=== PATIENT | female | born 1925 | race Caucasian/White ===

== ENCOUNTER 2017-06-19 11:32 | Observation (INO) | payer MEDICARE, OTHER ==
[~2017-06-19] VITALS: Ht 160 cm; Wt 60.0 kg
[2017-06-19] VITALS (7 sets, daily range): BP systolic 131–168; BP diastolic 64–80; PULSE 70–83; RESP 16–20; TEMP 97.8–98.7; O2SAT 94–96
[~2017-06-19 11:32] MED LIST: ASPI-94 PO; CARI350T19 PO; CLOP75 PO; CO-E50CA PO; FISH1000 PO; FURO1TAB93 PO; GABA300 PO; GLUC250C5 PO; IMDU60TA PO; LEVO75TA41 PO; METO50 PO; NITR4.9S3 SL; TAB-TAB PO; [UNRECOGNIZED DRUG - CODE] SL
[2017-06-19] MEDS ORDERED: ASPIRIN 81 MG CHEW TAB PO ONE (12:00)
[2017-06-19] MEDS ORDERED: NITROGLYCERIN 2% OINT 1 GM PACKET TOP ONE (12:00)
[2017-06-19] MEDS ORDERED: MORPHINE SULFATE 4 MG/ML INJ IV PUSH ONE (12:00)
[2017-06-19] MEDS ORDERED: SODIUM CHLORIDE 0.9% FLUSH 10 ML FLUSH IVF PRN (12:00)
--- NOTE | 2017-06-19 12:22 | RADRPT ---
EXAM DATE/TIME: 06/19/2017 12:03 [place] COMPARISON: No previous studies available for comparison. INDICATIONS : Chest pain, heavy feeling in chest, short of breath and headache MEDICAL HISTORY : Cardiovascular disease. SURGICAL HISTORY : coronary artery stent x 3 ENCOUNTER: Initial ACUITY: 1 week PAIN SCORE: 5/10 LOCATION: Bilateral chest FINDINGS: Gastrinomas are seen in both lungs, described on the CT and radiograph of 04/29/2013. There is no papo dent consolidation, pleural effusion or pneumothorax. The heart and pulmonary vascularity are normal. The portion of the bony skeleton visualized is unremarkable. CONCLUSION: Negative for acute process. Bryon Rdz MD FACR on June 19, 2017 at 12:18 Board Certified Radiologist. This report was verified electronically.
[2017-06-19 12:47] LABS: AUTOMATED NEUTROPHIL # 7.5 TH/MM3 (1.8-7.7); BASOPHIL # 0.1 TH/MM3 (0-0.2); BASOPHIL % 0.7 % (0.0-2.0); EOSINOPHIL # 0.2 TH/MM3 (0-0.4); EOSINOPHIL % 1.6 % (0.0-4.0); HEMATOCRIT 39.6 % (35.0-46.0); HEMO FLAGS DIFF FINAL; LYMPH % 13.5 % (9.0-44.0); LYMPHOCYTE # 1.5 TH/MM3 (1.0-4.8); MEAN CELL VOLUME 95.4 FL (80.0-100.0); MEAN CORPUSCULAR HEMOGLOBIN 31.3 PG (27.0-34.0); MEAN CORPUSCULAR HGB CONC 32.9 % (32.0-36.0); MONO % 15.9 % (0.0-8.0); NEUT % 68.3 % (16.0-70.0); PLATELET COUNT 208 TH/MM3 (150-450); RED BLOOD COUNT 4.15 MIL/MM3 (4.00-5.30); RED CELL DISTRIBUTION WIDTH 13.2 % (11.6-17.2); WHITE BLOOD COUNT 10.9 TH/MM3 (4.0-11.0)
[2017-06-19 12:56] LABS: APTT (PATIENT) 26.7 SEC (24.3-30.1); PROTHROMBIN TIME - PATIENT 11.4 SEC (9.8-11.6)
--- NOTE | 2017-06-19 13:00 | PD ---
HPI . Headache Chief Complaint: Cardiac Complaint Time Seen by Provider: 11:45 Travel History International Travel<30 days: No Contact w/Intl Traveler<30days: No Traveled to known affect area: No History of Present Illness HPI This patient presents complaining with headache, chest pressure and shortness of breath. She has been having these symptoms intermittently for about a week and a half. The symptoms always occur between 2 AM and 5 AM. She states that her symptoms peak 3 AM. She believes that all of her symptoms are related to elevated blood pressure. She states that she wakes up with the headaches and then starts monitoring her blood pressures. Her blood pressures will gradually increase and then spontaneously start to decrease. She states that her symptoms seem to go away when it becomes morning time and when her blood pressure goes down. She states that she does not have symptoms every day but has had them several times in the last week and a half. She reports her chest pressure is mild headaches are severe. They are frontal. The headaches resolve with ice. PFSH Past Medical History Arthritis: Yes (knee) Asthma: No Heart Rhythm Problems: Yes (1998) Cancer: Yes (lymphoma x2, squamous cell x 2) Cardiac Catheterization: Yes Cardiovascular Problems: Yes High Cholesterol: Yes Chemotherapy: Yes (1988 & 1998) Chest Pain: Yes Congestive Heart Failure: Yes COPD: No Cerebrovascular Accident: No Coronary Artery Disease: Yes Diabetes: No Diminished Hearing: No Endocrine: Yes Gastrointestinal Disorders: No Glaucoma: No Genitourinary: No Hepatitis: No Hypertension: No Medical other: Yes (PERIPHERAL NEUROPATHY) Musculoskeletal: Yes Neurologic: Yes (NEUROPATHY) Psychiatric: No Reproductive: No Respiratory: Yes Migraines: No Myocardial Infarction: Yes Radiation Therapy: No Renal Failure: No Seizures: No Sleep Apnea: No Thyroid Disease: Yes (hypothyroidism) Past Surgical History Abdominal Surgery: Yes (SPLENECTOMY/ appy) AICD: No Appendectomy: Yes Arteriovenous Shunt: No Cardiac Surgery: Yes (3 stents 2005) Coronary Stent: Yes (X 3) Endocrine Surgery: No Eye Surgery: Yes (CATARACT LEFT EYE) Gynecologic Surgery: Yes (full hyster) Hysterectomy: Yes Insulin Pump: No Joint Replacement: No Oral Surgery: Yes (T & A) Pacemaker: No Thoracic Surgery: No Tonsillectomy: Yes Other Surgery: Yes (SQUMAOUS CELL CARCINOMA REMOVED FROM THROAT) Social History Alcohol Use: No Tobacco Use: No Substance Use: No Allergies-Medications (Allergen,Severity, Reaction): Coded Allergies: penicillin G (Unverified Allergy, Severe, HIVES, 05/16/17) lovastatin (Unverified Allergy, Intermediate, MUSCLE PAIN, 05/16/17) ALL "STATINS" rosuvastatin (Unverified Allergy, Intermediate, 05/16/17) Uncoded Allergies: STATINS (Allergy, Severe, 11/07/11) Reported Meds & Prescriptions Reported Meds & Active Scripts Active Reported Lasix (Furosemide) 40 Mg Tab 40 Mg PO DAILY Nitrolingual 0.4 Mg Pumpspray (Nitroglycerin) 60 Mcbrides/4.9 Gm Mcbrides 1 Mcbrides SL DIRECTED MAXIUMUM OF 3 DOSES IN 15 MINUTES.CALL MD IF CHEST PAIN NOT RELIEVED. Glucosamine Chondroitin (Glucosamine-Chondroitin) 1 Cap Cap 1 Cap PO DAILY Carisoprodol 350 Mg Tab 0.5 Tab PO Q12H Ec-81 Aspirin (Aspirin) 81 Mg Tabec 81 Mg PO DAILY B-12-Sl (Cyanocobalamin) 1,000 Mcg Sub 1,000 Mcg SL DAILY Co Enzyme Q-10 (Coenzyme Q10 (Ubidecarenone)) 50 Mg Cap 100 Mg PO DAILY Lopressor (Metoprolol Tartrate) 50 Mg Tab 50 Mg PO BID Multivitamin (Multivitamins) 1 Tab Tab 1 Tab PO DAILY Fish Oil 1,000 Mg Cap 1,200 Mg PO BID Plavix (Clopidogrel Bisulfate) 75 Mg Tab 75 Mg PO DAILY Imdur (Isosorbide Mononitrate) 60 Mg Tabcr 60 Mg PO DAILY Levothroid (Levothyroxine Sodium) 75 Mcg Tab 75 Mcg PO DAILY@0600 Neurontin (Gabapentin) 300 Mg Cap 300 Mg PO Q6 600 MG @ 0600 300 MG @ 1200 300 MG @ 1800 600 MG @ 0000 Review of Systems Except as stated in HPI: all other systems reviewed are Neg General / Constitutional: No: Fever, Chills Eyes: No: Blurred Vision HENT: Positive: Headaches Cardiovascular: Positive: Chest Pain or Discomfort Respiratory: Positive: Shortness of Breath Gastrointestinal: No: Nausea, Vomiting Physical Exam Narrative GENERAL: Patient is awake and alert and in no acute distress. SKIN: warm/dry. No rashes. HEAD: Normocephalic. Atraumatic. Nontender. EYES: Pupils equal and round. No scleral icterus. No injection or drainage. ENT: No nasal bleeding or discharge. Mucous membranes pink and moist. NECK: Trachea midline. Full range of motion without pain.. CARDIOVASCULAR: Regular rate and rhythm. Heart sounds are normal. RESPIRATORY: No accessory muscle use. Coarse bibasilar rhonchi. Breath sounds equal bilaterally. GASTROINTESTINAL: Abdomen soft. Nontender. Bowel sounds present. Nondistended. MUSCULOSKELETAL: No obvious deformities. No edema. NEUROLOGICAL: Awake and alert. No obvious cranial nerve deficits. Motor grossly within normal limits. Normal speech. PSYCHIATRIC: Appropriate mood and affect; insight and judgment normal. Data Data Last Documented VS Vital Signs Date Time Temp Pulse Resp B/P (MAP) Pulse Ox O2 Delivery O2 Flow Rate FiO2 06/19/17 12:26 67 18 96 Room Air 06/19/17 11:37 97.8 133/71 (91) Orders Orders Electrocardiogram (06/19/17 11:46) B-Type Natriuretic Peptide (06/19/17 11:46) Ckmb (Isoenzyme) Profile (06/19/17 11:46) Complete Blood Count With Diff (06/19/17 11:46) Comprehensive Metabolic Panel (06/19/17 11:46) Magnesium (Mg) (06/19/17 11:46) Prothrombin Time / Inr (Pt) (06/19/17 11:46) Act Partial Throm Time (Ptt) (06/19/17 11:46) Troponin I (06/19/17 11:46) Chest, Single Ap (06/19/17 11:46) Ecg Monitoring (06/19/17 11:46) Iv Access Insert/Monitor (06/19/17 11:46) Oximetry (06/19/17 11:46) Aspirin Chew (Aspirin Chew) (06/19/17 12:00) Morphine Inj (Morphine Inj) (06/19/17 12:00) Nitroglycerin 2% Oint (Nitroglycerin 2% (06/19/17 12:00) Sodium Chloride 0.9% Flush (Ns Flush) (06/19/17 12:00) CKMB (06/19/17 12:27) CKMB% (06/19/17 12:27) Furosemide Inj (Lasix Inj) (06/19/17 13:30) Labs Laboratory Tests Test 06/19/17 12:27 White Blood Count 10.9 TH/MM3 Red Blood Count 4.15 MIL/MM3 Hemoglobin 13.0 GM/DL Hematocrit 39.6 % Mean Corpuscular Volume 95.4 FL Mean Corpuscular Hemoglobin 31.3 PG Mean Corpuscular Hemoglobin Concent 32.9 % Red Cell Distribution Width 13.2 % Platelet Count 208 TH/MM3 Mean Platelet Volume 10.4 FL Neutrophils (%) (Auto) 68.3 % Lymphocytes (%) (Auto) 13.5 % Monocytes (%) (Auto) 15.9 % Eosinophils (%) (Auto) 1.6 % Basophils (%) (Auto) 0.7 % Neutrophils # (Auto) 7.5 TH/MM3 Lymphocytes # (Auto) 1.5 TH/MM3 Monocytes # (Auto) 1.7 TH/MM3 Eosinophils # (Auto) 0.2 TH/MM3 Basophils # (Auto) 0.1 TH/MM3 CBC Comment DIFF FINAL Differential Comment Prothrombin Time 11.4 SEC Prothromb Time International Ratio 1.0 RATIO Activated Partial Thromboplast Time 26.7 SEC Blood Urea Nitrogen 25 MG/DL Creatinine 1.49 MG/DL Random Glucose 96 MG/DL Total Protein 7.5 GM/DL Albumin 3.0 GM/DL Calcium Level 9.1 MG/DL Magnesium Level 2.1 MG/DL Alkaline Phosphatase 68 U/L Aspartate Amino Transf (AST/SGOT) 19 U/L Alanine Aminotransferase (ALT/SGPT) 18 U/L Total Bilirubin 0.6 MG/DL Sodium Level 137 MEQ/L Potassium Level 4.3 MEQ/L Chloride Level 103 MEQ/L Carbon Dioxide Level 27.1 MEQ/L Anion Gap 7 MEQ/L Estimat Glomerular Filtration Rate 33 ML/MIN Total Creatine Kinase 128 U/L Creatine Kinase MB 2.0 NG/ML Troponin I 0.02 NG/ML B-Type Natriuretic Peptide 752 PG/ML [facility] Medical Decision Making Medical Screen Exam Complete: Yes Emergency Medical Condition: Yes Medical Record Reviewed: Yes (medical history significant for 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 She does have known coronary artery disease and is status post stenting in the past.) Interpretation(s) EKG shows sinus rhythm. No ST segment elevation or depression. Differential Diagnosis Differential diagnosis of chest pain includes but is not limited to musculoskeletal pain, pulmonary embolism, acute coronary syndrome, pneumonia, pleurisy Differential diagnosis of headache includes but is not limited to migraine, muscle contraction headache, brain tumor, brain bleed Differential diagnosis of dyspnea includes but is not limited to congestive heart failure, pneumonia, wheezing, pneumothorax, pulmonary embolism My differential diagnosis of high blood pressure includes but is not limited to "white coat syndrome," anxiety, essential hypertension, hypertensive emergency. Narrative Course This patient presents concerned about her blood pressure. She reports occasional headaches during the middle the night. She then takes her blood pressure and notes it to be elevated. She also has some associated chest pressure and dyspnea on exertion. Last Impressions Chest X-Ray 06/19/17 1146 Signed Impressions: Service Date/Time: Monday, June 19, 2017 12:03 - CONCLUSION: Negative for acute process. Bryon Rdz MD FACR CBC & BMP Diagram 06/19/17 12:27 Total Protein 7.5, Albumin 3.0 L, Calcium Level 9.1, Magnesium Level 2.1, Alkaline Phosphatase 68, Aspartate Amino Transf (AST/SGOT) 19, Alanine Aminotransferase (ALT/SGPT) 18, Total Bilirubin 0.6 BNP 752. I have ordered IV Lasix. The patient already takes aspirin and Plavix. trop 0.02. CK 128. I will consult [facility] for admission for treatment of CHF and further evaluation of her chest pressure. Physician Communication Physician Communication Dr. Mccall. He will admit to OBS. Dr. Garcia, cardiology, will be consulted. Diagnosis Primary Impression: Dilated cardiomyopathy Additional Impressions: Headache Qualified Codes: R51 - Headache Chest pain Qualified Codes: R07.9 - Chest pain, unspecified DYKES (dyspnea on exertion) Admitting Information Admitting Physician Requests: Admit Condition: Stable Noelle Vu MD Jun 19, 2017 13:00
[2017-06-19 13:08] LABS: ANION GAP 7 MEQ/L (5-15); AST (GOT) 19 U/L (15-37); BICARBONATE 27.1 MEQ/L (21.0-32.0); BLOOD UREA NITROGEN 25 MG/DL (7-18); CHLORIDE 103 MEQ/L (98-107); GLOMERULAR FILTRATION RATE 33 ML/MIN (>89); MAGNESIUM 2.1 MG/DL (1.5-2.5); POTASSIUM 4.3 MEQ/L (3.5-5.1); SODIUM (NA) 137 MEQ/L (136-145)
[2017-06-19 13:12] LABS: ALKALINE PHOSPHATASE 68 U/L (45-117); ALT (GPT) 18 U/L (10-53); CREATINE KINASE 128 U/L (26-192); TOTAL BILIRUBIN ADULT 0.6 MG/DL (0.2-1.0)
[2017-06-19] MEDS ORDERED: FUROSEMIDE 40 MG/4 ML VIAL IV PUSH ONE (13:30)
[2017-06-19] MEDS ORDERED: SENNOSIDES 8.6 MG TAB PO PRN (14:30)
[2017-06-19] MEDS ORDERED: SODIUM CHLORIDE 0.9% FLUSH 10 ML FLUSH IV FLUSH PRN (14:30)
[2017-06-19] MEDS ORDERED: LACTULOSE SYRUP 20 GM/30 ML CUP PO PRN (14:30)
[2017-06-19] MEDS ORDERED: BISACODYL 10 MG SUPP RECTAL PRN (14:30)
[2017-06-19] MEDS ORDERED: NALOXONE HCL 0.4 MG/ML AMP IV PUSH PRN (14:30)
[2017-06-19] MEDS ORDERED: MAGNESIUM HYDROXIDE SUSP 30 ML CUP PO PRN (14:30)
[2017-06-19] MEDS ORDERED: CYAN100025 SL (17:21)
[2017-06-19] MEDS ORDERED: CENTCHW4 CHEW (17:21)
[2017-06-19] MEDS ORDERED: LEVO75TA3 PO (17:21)
[2017-06-19] MEDS ORDERED: NITR1SUB3 SL (17:21)
[2017-06-19] MEDS ORDERED: ENAL10TA PO (17:21)
[2017-06-19] MEDS ORDERED: GABA300C5 PO (17:21)
[2017-06-19] MEDS ORDERED: CALTCHW5 PO (17:21)
[2017-06-19] MEDS ORDERED: METO25TA3 PO (17:21)
[2017-06-19] MEDS ORDERED: FISHCAP4 PO (17:21)
[2017-06-19] MEDS ORDERED: GLUC1CAP16 PO (17:21)
[2017-06-19] MEDS ORDERED: ISOS60TA PO (17:21)
[2017-06-19] MEDS ORDERED: CO Q100C9 PO (17:21)
[2017-06-19] MEDS ORDERED: FURO20TA PO (17:21)
[2017-06-19] MEDS ORDERED: PLAV75TA29 PO (17:21)
[2017-06-19] MEDS ORDERED: ASPI81CH37 CHEW (17:21)
[2017-06-19] MEDS ORDERED: NITROGLYCERIN 0.4 MG SL 25 TABS/BTL SL PRN (17:30)
[2017-06-19] MEDS ORDERED: ACETAMINOPHEN 500 MG CPLT PO PRN (17:30)
[2017-06-19] MEDS ORDERED: cloNIDine HCL 0.1 MG TAB PO PRN (17:45)
--- NOTE | 2017-06-19 17:46 | HHI.HP ---
[facility] Unknown Admission Diagnosis CHF, CP, DYKES, BAKER Diagnoses: Chief Complaint: Elevated blood pressure Travel History International Travel<30 Days: No Contact w/Intl Traveler <30 Da: No Traveled to Known Affected Are: No History of Present Illness 89-year-old female with past medical history of CAD, CHF, PAD, hypothyroidism, lymphoma, neuropathy who presented for elevated blood pressure, chest pain, headache. The patient states that for the past few weeks she's been having problems with elevated blood pressure. She states that when her blood pressure is high she gets headache and chest pain. She states the elevated blood pressure is causing pain that wakes her up in the middle of the night. Normally her blood pressure has been low. She describes the chest pain as cold and heavy across the front of her chest. The pain is not exacerbated by exertion and does not radiate. She describes the pain in her head as a pressure that is relieved whenever she puts ice on her head. She has shortness of breath on exertion chronically, no change. She denies any lower extremity swelling. She's had cough for the past 4 months secondary to throat surgery. She denies any fevers or recent illness. She's noticed some shaking chills today. She reports a lot of urine output being on Lasix, no change. She denies any nausea, vomiting, diarrhea, constipation. 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 Reported Medications Reported Meds & Active Scripts Active Reported Co Q 10 (Coenzyme Q10 (Ubidecarenone)) 100 Mg-5 Unit Cap 1 Cap PO DAILY B-12 (Cyanocobalamin) 1,000 Mcg Subl 1,000 Mcg SL DAILY Fish Oil + D3 (Fish Oil-Cholecalciferol) 1,200-1,000 Mg-Unit Cap 1 Cap PO DAILY Glucosamine Chondroitin (Cxnbhgxctvu-Enahglbmpdu-Jbd C-) 500 Mg-400 Mg Cap 1 Tab PO DAILY Caltrate 600+D Chew (Calcium Carbonate-Vitamin D Chew) 600-400 Mg-Unit Chew 1 Tab PO DAILY Centrum (Multiple Vitamins W/ Minerals) 1 Chew 1 Tab CHEW DAILY Nitroglycerin SL (Nitroglycerin) 0.4 Mg Subl 0.4 Mg SL DIRECTED PRN ONE TABLET UNDER THE TONGUE NEEDED FOR CHEST PAIN, MAY REPEAT EVERY FIVE MINUTES FOR A TOTAL OF 3 DOSES OR CALL 911 IF NO RELIEF Levothyroxine (Levothyroxine Sodium) 75 Mcg Tab 75 Mcg PO DAILY@0200 Enalapril (Enalapril Maleate) 10 Mg Tab 10 Mg PO BID Metoprolol Tartrate 25 Mg Tab 25 Mg PO 8AM, 8PM Furosemide 20 Mg Tab 20 Mg PO DAILY Aspirin Low Dose (Aspirin) 81 Mg Chew 81 Mg CHEW DAILY Plavix (Clopidogrel Bisulfate) 75 Mg Tab 75 Mg PO DAILY Isosorbide Mononitrate ER (Isosorbide Mononitrate) 60 Mg Tab 60 Mg PO DAILY Gabapentin 300 Mg Cap 300 Mg PO Q6H Allergies: Coded Allergies: penicillin G (Unverified Allergy, Severe, HIVES, 05/16/17) lovastatin (Unverified Allergy, Intermediate, MUSCLE PAIN, 05/16/17) ALL "STATINS" rosuvastatin (Unverified Allergy, Intermediate, 05/16/17) Uncoded Allergies: STATINS (Allergy, Severe, 11/07/11) Active Ordered Medications Current Medications Medications (Trade) Dose Ordered Sig/Boris Route Start Time Stop Time Status Last Admin (NS Flush) 2 ml UNSCH PRN IV FLUSH 06/19/17 14:30 (NS Flush) 2 ml BID IV FLUSH 06/19/17 21:00 (Heparin Inj) 5,000 units Q12H SQ 06/19/17 16:00 (Narcan Inj) 0.4 mg UNSCH PRN IV PUSH 06/19/17 14:30 (Milk Of Magnesia Liq) 30 ml Q12H PRN PO 06/19/17 14:30 (Senokot) 17.2 mg Q12H PRN PO 06/19/17 14:30 (Dulcolax Supp) 10 mg DAILY PRN RECTAL 06/19/17 14:30 (Lactulose Liq) 30 ml DAILY PRN PO 06/19/17 14:30 (Lopressor) 25 mg Q12HR PO 06/19/17 21:00 (Ecotrin Ec) 81 mg DAILY PO 06/20/17 09:00 (Plavix) 75 mg DAILY PO 06/19/17 16:45 (Lasix) 20 mg DAILY PO 06/20/17 09:00 (Vasotec) 10 mg BID PO 06/19/17 21:00 Family History Father and mother had heart disease which her father from Mother from uterine cancer Sr. had cancer of the liver and pancreas Son of lung cancer Social History No alcohol or tobacco use Lives at home by herself with her daughter nearby Physical Exam Vital Signs Vital Signs Date Time Temp Pulse Resp B/P (MAP) Pulse Ox O2 Delivery O2 Flow Rate FiO2 06/19/17 16:10 70 18 157/80 (105) 96 06/19/17 16:07 96 Room Air 06/19/17 15:00 70 16 168/79 (108) 95 Room Air 06/19/17 12:26 67 18 96 Room Air 06/19/17 11:37 97.8 74 20 133/71 (91) 96 Room Air Physical Exam GENERAL: Well-developed fair-nourished frail elderly lady. In no acute distress. SKIN: Warm and dry. No lesions noted. HEENT: Normocephalic. Pupils equal and round. Mucous membranes pink and moist. CARDIOVASCULAR: Regular rate and rhythm. No murmur appreciated. RESPIRATORY: No accessory muscle use. Clear to auscultation. Breath sounds equal bilaterally. GASTROINTESTINAL: Abdomen soft, non-tender, nondistended. Bowel sounds x4. MUSCULOSKELETAL: No obvious deformities. No clubbing or cyanosis. No edema. NEUROLOGICAL: Awake and alert. No focal neurological deficits. Moves upper and lower extremities spontaneously. Normal speech. PSYCHIATRIC: Appropriate mood and affect; insight and judgment normal. Laboratory Laboratory Tests Test 06/19/17 12:27 White Blood Count 10.9 Red Blood Count 4.15 Hemoglobin 13.0 Hematocrit 39.6 Mean Corpuscular Volume 95.4 Mean Corpuscular Hemoglobin 31.3 Mean Corpuscular Hemoglobin Concent 32.9 Red Cell Distribution Width 13.2 Platelet Count 208 Mean Platelet Volume 10.4 Neutrophils (%) (Auto) 68.3 Lymphocytes (%) (Auto) 13.5 Monocytes (%) (Auto) 15.9 Eosinophils (%) (Auto) 1.6 Basophils (%) (Auto) 0.7 Neutrophils # (Auto) 7.5 Lymphocytes # (Auto) 1.5 Monocytes # (Auto) 1.7 Eosinophils # (Auto) 0.2 Basophils # (Auto) 0.1 CBC Comment DIFF FINAL Differential Comment Prothrombin Time 11.4 Prothromb Time International Ratio 1.0 Activated Partial Thromboplast Time 26.7 Blood Urea Nitrogen 25 Creatinine 1.49 Random Glucose 96 Total Protein 7.5 Albumin 3.0 Calcium Level 9.1 Magnesium Level 2.1 Alkaline Phosphatase 68 Aspartate Amino Transf (AST/SGOT) 19 Alanine Aminotransferase (ALT/SGPT) 18 Total Bilirubin 0.6 Sodium Level 137 Potassium Level 4.3 Chloride Level 103 Carbon Dioxide Level 27.1 Anion Gap 7 Estimat Glomerular Filtration Rate 33 Total Creatine Kinase 128 Creatine Kinase MB 2.0 Troponin I 0.02 B-Type Natriuretic Peptide 752 Result Diagram: 06/19/17 1227 06/19/17 1227 Imaging Last Impressions Chest X-Ray 06/19/17 1146 Signed Impressions: Service Date/Time: Monday, June 19, 2017 12:03 - CONCLUSION: Negative for acute process. Bryon Rdz MD FACR Caprini VTE Risk Assessment Caprini VTE Risk Assessment: Mod/High Risk (score >= 2) Caprini Risk Assessment Model Point Value = 1 Point Value = 2 Point Value = 3 Point Value = 5 Age 41-60 Minor surgery BMI > 25 kg/m2 Swollen legs Varicose veins or History of unexplained or recurrent spontaneous Oral contraceptives or hormone replacement Sepsis (< 1 month) Serious lung disease, including pneumonia (< 1 month) Abnormal pulmonary function Acute myocardial infarction Congestive heart failure (< 1 month) History of inflammatory bowel disease Medical patient at bed rest Age 61-74 Arthroscopic surgery Major open surgery (> 45 min) Laparoscopic surgery (> 45 min) Malignancy Confined to bed (> 72 hours) Immobilizing plaster cast Central venous access Age >= 75 History of VTE Family history of VTE Factor V Leiden Prothrombin [id number] Lupus anticoagulant Anticardiolipin antibodies Elevated serum homocysteine Heparin-induced thrombocytopenia Other congenital or acquired thrombophilia Stroke (< 1 month) Elective arthroplasty Hip, pelvis, or leg fracture Acute spinal cord injury (< 1 month) Prophylaxis Regimen Total Risk Factor Score Risk Level Prophylaxis Regimen 0-1 Low Early ambulation 2 Moderate Order ONE of the following: *Sequential Compression Device (SCD) *Heparin 5000 units SQ BID 3-4 Higher Order ONE of the following medications: *Heparin 5000 units SQ TID *Enoxaparin/Lovenox 40 mg SQ daily (WT < 150 kg, CrCl > 30 mL/min) *Enoxaparin/Lovenox 30 mg SQ daily (WT < 150 kg, CrCl > 10-29 mL/min) *Enoxaparin/Lovenox 30 mg SQ BID (WT < 150 kg, CrCl > 30 mL/min) AND/OR *Sequential Compression Device (SCD) 5 or more Highest Order ONE of the following medications: *Heparin 5000 units SQ TID (Preferred with Epidurals) *Enoxaparin/Lovenox 40 mg SQ daily (WT < 150 kg, CrCl > 30 mL/min) *Enoxaparin/Lovenox 30 mg SQ daily (WT < 150 kg, CrCl > 10-29 mL/min) *Enoxaparin/Lovenox 30 mg SQ BID (WT < 150 kg, CrCl > 30 mL/min) AND *Sequential Compression Device (SCD) Assessment and Plan Assessment and Plan 89-year-old female with past medical history of CAD, CHF, PAD, hypothyroidism, lymphoma, neuropathy who presented for elevated blood pressure, chest pain, headache Chest heaviness with history of CAD: Along with headache this has woken her up from sleep recently. Reviewed: EKG with NSR, first-degree AV block no definite ischemic changes. Initial troponin 0.02. Chest x-ray clear. -Continue rule out ACS per protocol with serial cardiac enzymes and EKGs -Patient's child care cook, Dr. Garcia, consulted and has ordered a stress test -Continue aspirin, Plavix, Imdur, metoprolol -Nitroglycerin as needed -Statin intolerant -Monitor on telemetry Labile blood pressure with associated headache: BP does seem uncontrolled here, patient states is worse at night. -Continue metoprolol, Imdur -Change enalapril to at bedtime for better [id number] control -Clonidine as needed Chronic systolic heart failure: Cardiac catheterization on 04/08/15 showed EF 25% . BNP was 752, but no signs of volume overload on exam or chest x-ray. Received IV Lasix 40 mg 1 in the ED. -Continue Lasix Hypothyroidism: -Check TSH -Continue levothyroxine DVT prophylaxis: Heparin Discussed Condition With Patient with daughter and RN at bedside, Irving Pastor Jun 19, 2017 17:46
[2017-06-19] MEDS: CLOPIDOGREL 75 MG TAB PO SCH (20:30)
[2017-06-19] MEDS: SODIUM CHLORIDE 0.9% FLUSH 10 ML FLUSH IV FLUSH SCH (20:48)
[2017-06-19] MEDS: METOPROLOL TARTRATE 25 MG TAB PO SCH (20:48)
[2017-06-19] MEDS: GABAPENTIN 300 MG CAP PO SCH (20:49)
[2017-06-19] MEDS: HEPARIN SODIUM - SQ 10,000 UNITS/ML VIAL SQ SCH (20:51)
[2017-06-19] MEDS ORDERED: ENALAPRIL MALEATE 10 MG TAB PO SCH ×2 (21:00)
--- NOTE | 2017-06-19 22:04 | MB ---
cc: MARLEY MUÑOZ M.D. DATE OF CONSULTATION 06/19/17 REASON FOR CONSULTATION Chest pain. HISTORY OF PRESENT ILLNESS The patient is an 89-year-old white female with a history of coronary artery disease, hyperlipidemia, mild ischemic cardiomyopathy, peripheral vascular disease, paroxysmal supraventricular tachycardia who presented to the hospital mainly with complaints of elevated blood pressures and chest discomfort. For the past week, almost invariably between the times of 2 to 5 a.m., she has awakened with a headache. When she would check her blood pressure it would be as high as 160/100. Between these hours she would also notice a "cold" sensation across her chest which would last for 3 hours. In the last several days she may have had slight increase in her baseline shortness of breath. She denies pleurisy, paroxysmal nocturnal dyspnea, palpitations, dizziness, syncope, near-syncope, pedal edema. PAST MEDICAL HISTORY 1. Coronary artery disease, status post stent of the mid LAD, proximal diagonal, mid-diagonal 03/08/06, status post stent of the proximal right coronary artery with a 2.25-mm Resolute stent 04/30/2013, status post stent of the proximal LAD with a 2.75-mm Promus stent 12/29/2014 at which time she also underwent angioplasty of the ostial and mid diagonal. She is now known to have a chronically occluded right coronary with [id number] collaterals as well as an occluded distal left circumflex. Her last heart catheterization was 04/08/2015 at which time her diagonal was totally occluded and restented with two 2.25 mm Resolute stents. 2. Hyperlipidemia. 3. Mild ischemic cardiomyopathy with ejection fraction of 45% by echo 12/30/2016. At one point her ejection fraction was 25% by cardiac catheterization in April 2015. 4. History of non-Hodgkin's lymphoma (large cell lymphoma) in 1998 status post chemotherapy and splenectomy. 5. Peripheral vascular disease status post stent of the right superficial femoral artery December 2010, status post atherectomy and angioplasty of the right superficial, femoral and popliteal arteries, unsuccessful angioplasty of the right posterior tibial 11/07/2011, status post stent of the left superficial femoral artery August 2012. 6. Paroxysmal supraventricular tachycardia. MEDICATIONS Her cardiac medications at home: 1. Isosorbide mononitrate 60 milligrams daily. 2. Plavix 75 milligrams daily. 3. Lopressor 50 milligrams b.i.d. 4. Ecotrin 81 milligrams daily. 5. Furosemide 40 milligrams daily. 6. Enalapril 10 mg bid. ALLERGIES STATINS, PENICILLIN. FAMILY HISTORY Noncontributory. SOCIAL HISTORY The patient has never smoked cigarettes. There is no history of alcohol abuse. REVIEW OF SYSTEMS As in the history of present illness, otherwise, negative or noncontributory. She also denies headache, visual changes, abdominal pain, melena, dyspepsia, bright red blood per rectum. The patient does report a chronic cough for the last few months, overall nonproductive. PHYSICAL EXAMINATION VITAL SIGNS: Blood pressure 157/80 with a pulse of 70, respirations 18. GENERAL: In general, she is a well-developed, well-nourished white female in no acute distress. HEENT: Jugular venous pressure is normal. Carotid pulses are 2+ bilaterally and without bruits. CHEST: Examination of the chest reveals clear lung nick. CARDIAC EXAMINATION: She has a regular rhythm and rate without S3-S4. There is possibly a grade 1/6 systolic murmur heard at the apex. No definite gallop is audible. ABDOMINAL EXAMINATION: She has a soft, nontender abdomen. Bowel sounds are present. There is no definite hepatosplenomegaly. EXTREMITIES: Examination of extremities reveals no clubbing, cyanosis or edema. LABORATORY DATA Includes normal CBC, potassium 4.3, BUN 25, creatinine 1.49. Negative cardiac enzymes. IMAGING STUDIES Chest x-ray shows no acute disease. CARDIOLOGY STUDIES EKG shows sinus rhythm, left anterior fascicular block, nonspecific T-wave changes. IMPRESSION Elevated morning blood pressures, atypical chest pains in this 89-year-old white female with a history of coronary artery disease, peripheral vascular disease, hyperlipidemia, mild ischemic cardiomyopathy with ejection fraction of 45% by echo earlier this year, paroxysmal supraventricular tachycardia. Cardiac enzymes are negative for myocardial infarction so far. There is no definite evidence for acute congestive heart failure. Some of her elevations in blood pressures could be due to anxiety. She does report compliance with her medications. EKG shows no definite acute ST-segment or T-wave changes. RECOMMENDATIONS 1. Continue serial cardiac enzymes. 2. Check a Lexiscan nuclear stress test in the morning. 3. Continue her usual home cardiac medications. Consider changing her enalapril to an angiotensin receptor [place] given her chronic cough. MD TOSHIA Cardozo/ALBERT /4:29 PM /9:51 PM MTDD
[2017-06-20] VITALS (8 sets, daily range): BP systolic 86–120; BP diastolic 49–60; PULSE 63–86; RESP 16–18; TEMP 97.9–98.8; O2SAT 92–96
[2017-06-20] MEDS ORDERED: LEVOTHYROXINE SODIUM 75 MCG TAB PO SCH (02:00)
[2017-06-20] MEDS: HEPARIN SODIUM - SQ 10,000 UNITS/ML VIAL SQ SCH (04:21)
[2017-06-20] MEDS: GABAPENTIN 300 MG CAP PO SCH ×3 (06:00→08:50)
[2017-06-20 07:28] LABS: AUTOMATED NEUTROPHIL # 8.9 TH/MM3 (1.8-7.7); BASOPHIL # 0.1 TH/MM3 (0-0.2); BASOPHIL % 0.6 % (0.0-2.0); EOSINOPHIL # 0.1 TH/MM3 (0-0.4); EOSINOPHIL % 0.8 % (0.0-4.0); HEMATOCRIT 41.8 % (35.0-46.0); LYMPH % 12.6 % (9.0-44.0); LYMPHOCYTE # 1.6 TH/MM3 (1.0-4.8); MEAN CELL VOLUME 94.2 FL (80.0-100.0); MEAN CORPUSCULAR HEMOGLOBIN 30.9 PG (27.0-34.0); MEAN CORPUSCULAR HGB CONC 32.8 % (32.0-36.0); MONO % 17.9 % (0.0-8.0); NEUT % 68.1 % (16.0-70.0); PLATELET COUNT 203 TH/MM3 (150-450); RED BLOOD COUNT 4.44 MIL/MM3 (4.00-5.30); RED CELL DISTRIBUTION WIDTH 13.3 % (11.6-17.2)
[2017-06-20 07:31] LABS: HEMO FLAGS AUTO DIFF
[2017-06-20 07:48] LABS: ALT (GPT) 17 U/L (10-53); ANION GAP 6 MEQ/L (5-15); AST (GOT) 26 U/L (15-37); BLOOD UREA NITROGEN 27 MG/DL (7-18); CHLORIDE 97 MEQ/L (98-107); GLOMERULAR FILTRATION RATE 29 ML/MIN (>89); POTASSIUM 4.1 MEQ/L (3.5-5.1); SODIUM (NA) 131 MEQ/L (136-145)
[2017-06-20 07:58] LABS: ALKALINE PHOSPHATASE 69 U/L (45-117); TOTAL BILIRUBIN ADULT 0.7 MG/DL (0.2-1.0)
--- NOTE | 2017-06-20 08:31 | PD.CARD.PN ---
Subjective Subjective Remarks No CP, dyspnea, dizziness. Persistent nonproductive cough. Objective Medications Item Value Date Time Aspirin 81 mg 06/20/17 0900 (Ecotrin Ec) DAILY/PO Furosemide 20 mg 06/20/17 0900 (Lasix) DAILY/PO Isosorbide 60 mg 06/20/17 0900 Mononitrate DAILY/PO (Imdur) Metoprolol 25 mg 06/19/17 2100 Tartrate Q12HR/PO 06/19/17 2048 (Lopressor) Enalapril Maleate 20 mg 06/19/17 2100 (Vasotec) HS/PO 06/19/17 2304 Clopidogrel 75 mg 06/19/17 1645 Bisulfate DAILY/PO 06/19/17 2030 (Plavix) Heparin Sodium 5,000 units 06/19/17 1600 (Porcine) Q12H/SQ 06/20/17 0421 (Heparin Inj) Vital Signs / I&O Vital Signs Date Time Temp Pulse Resp B/P (MAP) Pulse Ox O2 Delivery O2 Flow Rate FiO2 06/20/17 07:07 98.6 75 16 111/55 (73) 94 06/20/17 06:27 21 06/20/17 05:16 98.8 70 17 120/59 (79) 92 06/20/17 00:33 97.9 72 17 118/55 (76) 96 06/19/17 20:30 83 06/19/17 20:10 98.7 83 18 131/64 (86) 95 06/19/17 17:19 98.5 81 19 155/78 (103) 94 06/19/17 16:10 70 18 157/80 (105) 96 06/19/17 16:07 96 Room Air 06/19/17 15:00 70 16 168/79 (108) 95 Room Air 06/19/17 12:26 67 18 96 Room Air 06/19/17 11:37 97.8 74 20 133/71 (91) 96 Room Air Physical Exam GENERAL: Well developed, well nourished. No acute distress. HEENT: Jugular venous pressure is normal. CHEST: Lungs clear to auscultation anteriorly. CARDIAC: Regular rate and rhythm without S3, S4, or murmur. ABDOMEN: Soft, nontender, no hepatosplenomegaly. Bowel sounds present. EXTREMITIES: No clubbing, cyanosis, or edema. Laboratory Laboratory Tests Test 06/19/17 12:27 06/19/17 18:15 06/20/17 00:27 06/20/17 06:25 White Blood Count 10.9 TH/MM3 13.0 TH/MM3 Red Blood Count 4.15 MIL/MM3 4.44 MIL/MM3 Hemoglobin 13.0 GM/DL 13.7 GM/DL Hematocrit 39.6 % 41.8 % Mean Corpuscular Volume 95.4 FL 94.2 FL Mean Corpuscular Hemoglobin 31.3 PG 30.9 PG Mean Corpuscular Hemoglobin Concent 32.9 % 32.8 % Red Cell Distribution Width 13.2 % 13.3 % Platelet Count 208 TH/MM3 203 TH/MM3 Mean Platelet Volume 10.4 FL 10.2 FL Neutrophils (%) (Auto) 68.3 % 68.1 % Lymphocytes (%) (Auto) 13.5 % 12.6 % Monocytes (%) (Auto) 15.9 % 17.9 % Eosinophils (%) (Auto) 1.6 % 0.8 % Basophils (%) (Auto) 0.7 % 0.6 % Neutrophils # (Auto) 7.5 TH/MM3 8.9 TH/MM3 Lymphocytes # (Auto) 1.5 TH/MM3 1.6 TH/MM3 Monocytes # (Auto) 1.7 TH/MM3 2.3 TH/MM3 Eosinophils # (Auto) 0.2 TH/MM3 0.1 TH/MM3 Basophils # (Auto) 0.1 TH/MM3 0.1 TH/MM3 CBC Comment DIFF FINAL AUTO DIFF Differential Comment Prothrombin Time 11.4 SEC Prothromb Time International Ratio 1.0 RATIO Activated Partial Thromboplast Time 26.7 SEC Blood Urea Nitrogen 25 MG/DL 27 MG/DL Creatinine 1.49 MG/DL 1.68 MG/DL Random Glucose 96 MG/DL 101 MG/DL Total Protein 7.5 GM/DL 7.6 GM/DL Albumin 3.0 GM/DL 3.0 GM/DL Calcium Level 9.1 MG/DL 9.1 MG/DL Magnesium Level 2.1 MG/DL Alkaline Phosphatase 68 U/L 69 U/L Aspartate Amino Transf (AST/SGOT) 19 U/L 26 U/L Alanine Aminotransferase (ALT/SGPT) 18 U/L 17 U/L Total Bilirubin 0.6 MG/DL 0.7 MG/DL Sodium Level 137 MEQ/L 131 MEQ/L Potassium Level 4.3 MEQ/L 4.1 MEQ/L Chloride Level 103 MEQ/L 97 MEQ/L Carbon Dioxide Level 27.1 MEQ/L 28.0 MEQ/L Anion Gap 7 MEQ/L 6 MEQ/L Estimat Glomerular Filtration Rate 33 ML/MIN 29 ML/MIN Total Creatine Kinase 128 U/L Creatine Kinase MB 2.0 NG/ML Troponin I 0.02 NG/ML LESS THAN 0.02 NG/ML 0.03 NG/ML B-Type Natriuretic Peptide 752 PG/ML Thyroid Stimulating Hormone 3rd Gen 1.090 uIU/ML Assessment and Plan Problem List: (1) CAD (coronary artery disease) ICD Codes: I25.10 - CAD (coronary artery disease) Status: Acute Plan: Stable overnight. No further CP's. Cardiac enzymes negative for acute HI. Lexiscan nuclear stress test results pending. REC await nuclear stress test, cath only if significant amount of ischemia demonstrated, otherwise can discharge home from a cardiac standpoint (2) Ischemic cardiomyopathy ICD Codes: I25.5 - Ischemic cardiomyopathy Status: Chronic Plan: Stable. Compensated. EF 45% on echo earlier this year. Patient with chronic nonproductive cough, possibly from enalapril. REC continue metoprolol change enalapril to Cozaar 50 mg qd (3) Hyperlipidemia ICD Codes: E78.5 - Hyperlipidemia Status: Chronic Plan: Patient unfortunately statin intolerant. Continue dietary restrictions. (4) Hypertension ICD Codes: I10 - Hypertension Status: Chronic Plan: Normotensive this morning. Continue same. Code Status full code Discussed Condition With patient and daughter Problem Qualifiers (1) CAD (coronary artery disease): Qualified Codes: I25.119 - Atherosclerotic heart disease of platinum coronary artery with unspecified angina pectoris (2) Hyperlipidemia: Qualified Codes: E78.2 - Mixed hyperlipidemia (3) Hypertension: Qualified Codes: I10 - Essential (primary) hypertension Shekhar Garcia MD Jun 20, 2017 08:31
[2017-06-20] MEDS: CLOPIDOGREL 75 MG TAB PO SCH (08:44)
[2017-06-20] MEDS: SODIUM CHLORIDE 0.9% FLUSH 10 ML FLUSH IV FLUSH SCH (08:44)
[2017-06-20 08:57] LABS: SCAN/DIFF AUTO DIFF CONFIRMED
[2017-06-20] MEDS ORDERED: LOSARTAN 50 MG TAB PO SCH (09:00)
[2017-06-20] MEDS ORDERED: ISOSORBIDE MONONITRATE 60 MG TAB PO SCH (09:00)
[2017-06-20] MEDS ORDERED: ASPIRIN EC 81 MG TABEC PO SCH (09:00)
[2017-06-20] MEDS ORDERED: FUROSEMIDE 20 MG TAB PO SCH (09:00)
[2017-06-20] MEDS ORDERED: REGADENOSON INJ 0.4 MG/5 ML SYR ONE (09:14)
--- NOTE | 2017-06-20 11:31 | RADRPT ---
EXAM DATE/TIME: 06/19/2017 18:35 [facility] COMPARISON: No previous studies available for comparison. INDICATIONS : Chest pain with dyspnea. Angina. DOSE: 30.1 mCi Tc99m Myoview at stress. 8.3 mCi Tc99m Myoview at rest. 0.4 mg Lexiscan STRESS SYMPTOMS: None noted. EJECTION FRACTION: 43% MEDICAL HISTORY : Congestive hearrt failure. Myocardial infarction. Hypertension. SURGICAL HISTORY : Coronary artery stent. Hysterectomy. Appendectomy. ENCOUNTER: Initial ACUITY: 2 weeks PAIN SCALE: 3/10 LOCATION: chest TECHNIQUE: The patient underwent pharmacologic stress with infusion of prescribed dose. Continuous ECG tracing was monitored during stress. Gated SPECT imaging was performed after stress and conventional SPECT i maging was performed at rest. The examination was performed on a SPECT/CT scanner, both attenuation and non-corrected datasets were reviewed. FINDINGS: DISTRIBUTION: The maximum perfused segment at stress is in the septal wall. PERFUSION STUDY: The pattern of perfusion at stress reveals a large fixed defect in the inferior wall extending into t he lateral wall and slightly into the septum. GATED STUDY: Hypokinesis with ejection fraction 43%. CONCLUSION: 1. Large fixed defect in the inferior wall extending into the lateral wall and septum characteristic of prior infarct. No significant ischemia identified. Infarct does appear slightly more extensive ivanna n in 2013. 2. Ejection fraction 43%, unchanged since 2012. RISK CATEGORY: High (>3% Annual Mortality Rate) Herbert Gold MD on June 20, 2017 at 11:23 Board Certified Radiologist. This report was verified electronically.
[2017-06-20] MEDS ORDERED: COZA50TA PO (12:17)
[2017-06-20] MEDS: METOPROLOL TARTRATE 25 MG TAB PO SCH (13:09)
--- NOTE | 2017-06-20 14:23 | HHI.PR ---
Subjective Remarks Patient seen this morning around 10 AM. Says she is feeling well. Denies any chest pain or shortness of breath. Objective Vital Signs Date Time Temp Pulse Resp B/P (MAP) Pulse Ox O2 Delivery O2 Flow Rate FiO2 06/20/17 12:36 78 98/60 (73) 06/20/17 11:08 98.0 86 17 86/49 (61) 96 06/20/17 08:35 21 06/20/17 07:07 98.6 75 16 111/55 (73) 94 06/20/17 07:00 72 06/20/17 06:27 21 06/20/17 05:16 98.8 70 17 120/59 (79) 92 06/20/17 00:33 97.9 72 17 118/55 (76) 96 06/19/17 20:30 83 06/19/17 20:10 98.7 83 18 131/64 (86) 95 06/19/17 17:19 98.5 81 19 155/78 (103) 94 06/19/17 16:10 70 18 157/80 (105) 96 06/19/17 16:07 96 Room Air 06/19/17 15:00 70 16 168/79 (108) 95 Room Air Result Diagram: 06/20/17 0625 06/20/17 0625 Objective Remarks GENERAL: Patient lying in bed. Appears comfortable. SKIN: Warm and dry. HEAD: Normocephalic. EYES: No scleral icterus. No injection or drainage. NECK: Supple, trachea midline. No JVD. CARDIOVASCULAR: Regular rate and rhythm without murmurs, gallops, or rubs. RESPIRATORY: Breath sounds equal bilaterally. No accessory muscle use. GASTROINTESTINAL: Abdomen soft, non-tender, nondistended. MUSCULOSKELETAL: No cyanosis, or edema. BACK: Nontender without obvious deformity. No CVA tenderness. A/P Assessment and Plan 89-year-old female with past medical history of CAD, CHF, PAD, hypothyroidism, lymphoma, neuropathy who presented for elevated blood pressure, chest pain, headache. Symptoms resolved. Patient underwent myocardial perfusion scan which shows fixed defect same as in 2013, however without any significant ischemia. Patient was cleared by cardiology for discharge. Blood pressure medications were adjusted. //Chest heaviness with history of CAD: Along with headache this has woken her up from sleep recently. Reviewed: EKG with NSR, first-degree AV block no definite ischemic changes. Initial troponin 0.02. Chest x-ray clear. -Continue rule out ACS per protocol with serial cardiac enzymes and EKGs -Patient's binding end stitcher, Dr. Garcia, consulted and has ordered a stress test -Continue aspirin, Plavix, Imdur, metoprolol -Nitroglycerin as needed -Statin intolerant -Monitor on telemetry = Resolved. myocardial perfusion scan with no significant change, no ischemia. EF unchanged from 2013. Cleared by cardiology for discharge. /Labile blood pressure with associated headache: BP does seem uncontrolled here , patient states is worse at night. -Continue metoprolol, Imdur -Change enalapril to at bedtime for better [id number] control -Clonidine as needed = Enalapril changed to losartan by cardiology. Appreciate assistance. //Chronic systolic heart failure: Cardiac catheterization on 04/08/15 showed EF 25 %. BNP was 752, but no signs of volume overload on exam or chest x-ray. Received IV Lasix 40 mg 1 in the ED. -No signs of CHF exacerbation. Discharge home with home Lasix. //Hypothyroidism: -TSH within normal limits. -Continue levothyroxine DVT prophylaxis: Heparin Discharge Planning Discharge home in good condition. Continue heart healthy diet. Activity ad tobi. Please see discharge medication list. Follow-up with cardiology and primary care. Jamar Mccall MD Jun 20, 2017 14:22
--- NOTE | 2017-06-21 21:10 | EKG ---
Date Performed: 06/19/2017 Time Performed: 18:15:57 PTAGE: 89 years EKG: Sinus rhythm WITH FIRST DEGREE AV BLOCK RIGHT BUNDLE BRANCH BLOCK INFERIOR MYOCARDIAL INFARCTION ANTEROSEPTAL JAYLON CARDIAL INFARCTION ABNORMAL ECG PREVIOUS TRACING : 06/19/2017 12.00 Compared to prior tracing no significant change DOCTOR: Stansilaw Murphy Interpretating Date/Time 06/21/2017 21:01:36
--- NOTE | 2017-06-21 21:11 | EKG ---
Date Performed: 06/19/2017 Time Performed: 12:00:55 PTAGE: 89 years EKG: Sinus rhythm WITH FIRST DEGREE AV BLOCK LEFT ANTERIOR FASCICULAR BLOCK LEFT VENTRICULAR HYPERTROPHY AND ST-T LOU GE POSSIBLE ANTERIOR MYOCARDIAL INFARCTION ABNORMAL ECG INTERPRETATION BASED ON A DEFAULT AGE OF 42 Y EARS PREVIOUS TRACING : 04/08/2015 12.20 No previous EKG available for comparison DOCTOR: Stanislaw Murphy Interpretating Date/Time 06/21/2017 21:03:37
== END 2017-06-20 17:12 | disposition home or self-care (01) ==
LOC: NEPC 11:32 → NEDA 14:16 → NEPHCDU 16:49
PROVIDERS: ADMIT Internal Medicine; ATTEND Internal Medicine
DX: I25.10 Atherosclerotic heart disease of native coronary artery without angina pectoris (principal); I11.9 Hypertensive heart disease without heart failure; I25.5 Ischemic cardiomyopathy; E78.5 Hyperlipidemia, unspecified; I47.1 Supraventricular tachycardia; I73.9 Peripheral vascular disease, unspecified; Z90.81 Acquired absence of spleen; R51 Headache; R06.02 Shortness of breath; Z95.5 Presence of coronary angioplasty implant and graft; Z92.21 Personal history of antineoplastic chemotherapy; Z85.72 Personal history of non-Hodgkin lymphomas; Z95.820 Peripheral vascular angioplasty status with implants and grafts
CPT/HCPCS: 71010; 78452; 80053; 82550; 82552; 83735; 83880; 84443; 84484; 85025; 85610; 85730; 93005; 93017; 96372; 96374; 97162; 99285; A9502; G0378; G8987; G8988; J1644; J1940; J2785